=== PATIENT | male | born 1970 | race Caucasian/White ===

== ENCOUNTER 2021-03-22 10:22 | Observation (INO) | payer MEDICARE, MEDICAID ==
[~2021-03-22] VITALS: Ht 167.6 cm; Wt 100.0 kg
[~2021-03-22 10:22] MED LIST: ABILIFY10 MG PO; ABILIFY15 MG PO; ABILIFY30 MG PO; AMBIEN10 MG PO; AMOXICILLIN500 MG PO; BUSPAR5 MG PO; CARAFATE1 GM PO; CATAPRES0.1 MG PO; CELEXA40 MG PO; CIPRO XR500 MG PO; CIPRO500 MG OR; CLONAZEP ODT1 MG PO; DOXYCYCL HYC100 MG PO; FLAGYL500 MG PO; FLUPHENAZINE5 MG PO; HYDROCHLOROT12.5 MG PO; KLONOPIN0.5 MG PO; LEXAPRO10 MG PO; LEXAPRO5 MG PO; LISINOP/HCTZ1 TA2 PO; LISINOP/HCTZ1 TAB PO; LISINOPRIL10 MG PO; LISINOPRIL5 MG PO; LORTAB 5/3255 MG PO; METOPROLOL25 M1 OR; NO MEDS; PRINIVIL5 MG PO; PROTONIX40 MG PO; SEROQUEL100 MG PO; TETRACYCLINE250 MG PO; TRAZODONE100 MG PO; TRAZODONE50 MG PO; ULTRAM50 M1 PO
[2021-03-22] MEDS ORDERED: TRAZODONE50 MG PO (10:44)
[2021-03-22] MEDS ORDERED: BUSPAR5 MG PO (10:44)
[2021-03-22] MEDS ORDERED: METFORMIN500 M2 PO (10:46)
[2021-03-22] MEDS ORDERED: GEODON40 M1 PO (10:46)
[2021-03-22 10:59] LABS: HEMATOCRIT 43.2 % (39.0-50.0); HEMOGLOBIN 13.9 g/dl (14.0-18.0); IMMATURE GRANULOCYTES 0.2 % (0.0-5.0); MEAN CORPUSCULAR HGB 25.7 pG CALC (26.0-32.0); MEAN CORPUSCULAR HGB CONC 32.2 g/dL CAL (32.0-36.0); NEUT# 8.94 thou/uL (1.82-7.42); RED BLOOD COUNT 5.4 mill/uL (4.70-6.10); RED CELL DISTRI WIDTH 13.7 % (11.5-15.5)
[2021-03-22 11:11] LABS: ALBUMIN 4.2 g/dL (3.2-5.0); ALKALINE PHOSPHATASE 81 u/l (38-126); ANION GAP 14 (6-22 (CALC)); BUN 22 mg/dL (9-20); BUN/CREATININE RATIO 29 (12-20 (CALC)); CARBON DIOXIDE 29 mmol/l (22-30); CHLORIDE 102 mmol/l (95-108); CREATININE 0.8 mg/dL (0.7-1.3); GFR > 60 ML/MIN (>=60 (CALC)); GFR FOR AFR.AMER. > 60 ML/MIN (>=60 (CALC)); LIPASE 68 u/l (23-300); POTASSIUM 3.7 mmol/l (3.5-5.1); SGOT/AST 26 u/l (17-59); SODIUM 142 mmol/l (137-146); TOTAL PROTEIN 8.2 g/dL (6.3-8.2)
[2021-03-22 11:15] LABS: BILIRUBIN, TOTAL 0.9 mg/dL (0.0-1.4)
[2021-03-22 13:05] LABS: URINE BILIRUBIN - DIPSTICK NEGATIVE (NEGATIVE); URINE BLOOD DIPSTICK NEGATIVE (NEGATIVE); URINE COLOR YELLOW; URINE GLUCOSE - DIPSTICK NEGATIVE (NEGATIVE); URINE KETONE NEGATIVE (NEGATIVE); URINE LEUK ESTERASE NEGATIVE (NEGATIVE); URINE PH 8.5 (4.5-8.0); URINE PROTEIN - DIPSTICK TRACE mg/dL (NEG-TRACE); URINE UROBILINOGEN - DIPSTICK 0.2 E.U./dL (0.2)
[2021-03-22 13:08] LABS: URINE NITRITE - DIPSTICK NEGATIVE (Negative)
[2021-03-22 16:20] VITALS: BP 150/88
[2021-03-22 19:26] VITALS: BP 166/89
[2021-03-23 00:07] VITALS: BP 138/80
[2021-03-23 05:06] VITALS: BP 169/76
[2021-03-23 05:23] LABS: HEMATOCRIT 39.2 % (39.0-50.0); HEMOGLOBIN 12.7 g/dl (14.0-18.0); IMMATURE GRANULOCYTES 0.6 % (0.0-5.0); MEAN CELL VOLUME 80.8 fL CALC (80.0-100.0); MEAN CORPUSCULAR HGB 26.2 pG CALC (26.0-32.0); MEAN CORPUSCULAR HGB CONC 32.4 g/dL CAL (32.0-36.0); NEUT# 8.69 thou/uL (1.82-7.42); RED BLOOD COUNT 4.85 mill/uL (4.70-6.10); RED CELL DISTRI WIDTH 13.6 % (11.5-15.5)
[2021-03-23 05:47] LABS: ALBUMIN 3.6 g/dL (3.2-5.0); ALKALINE PHOSPHATASE 69 u/l (38-126); ANION GAP 12 (6-22 (CALC)); BUN 29 mg/dL (9-20); BUN/CREATININE RATIO 46 (12-20 (CALC)); C-REACTIVE PROTEIN 1.9 mg/dL (0-0.9); CARBON DIOXIDE 26 mmol/l (22-30); CHLORIDE 106 mmol/l (95-108); CREATININE 0.6 mg/dL (0.7-1.3); GFR > 60 ML/MIN (>=60 (CALC)); GFR FOR AFR.AMER. > 60 ML/MIN (>=60 (CALC)); POTASSIUM 4.3 mmol/l (3.5-5.1); SGOT/AST 19 u/l (17-59); SODIUM 140 mmol/l (137-146); TOTAL PROTEIN 6.9 g/dL (6.3-8.2)
[2021-03-23 05:56] LABS: BILIRUBIN, TOTAL 0.4 mg/dL (0.0-1.4)
[2021-03-23 07:10] VITALS: BP 154/88
[2021-03-23 08:59] VITALS: BP 154/88
[2021-03-23] MEDS ORDERED: DOXYCYCL HYC100 MG PO (11:01)
== END 2021-03-23 12:25 | disposition home or self-care (01) ==
LOC: ED 10:22 → ED-I 14:37 → ED 15:06 → MS2 15:07
PROVIDERS: Emergency Medicine; Nurse Practitioner; ADMIT Hospitalist; ATTEND Hospitalist
DX: U07.1 COVID-19 (principal); R09.02 Hypoxemia; E11.9 Type 2 diabetes mellitus without complications; I10 Essential (primary) hypertension; F41.9 Anxiety disorder, unspecified; F31.9 Bipolar disorder, unspecified; F20.9 Schizophrenia, unspecified; F17.290 Nicotine dependence, other tobacco product, uncomplicated; Z79.84 Long term (current) use of oral hypoglycemic drugs
CPT/HCPCS: J1650; Q9967

== ENCOUNTER 2021-07-25 22:03 | Emergency (ER) | payer MEDICARE, OTHER ==
[~2021-07-25] VITALS: Ht 167.6 cm; Wt 100.0 kg
[~2021-07-25 22:03] MED LIST changes: +GEODON40 M1 PO; +METFORMIN500 M2 PO
[2021-07-25] MEDS ORDERED: PROZAC10 MG PO (22:57)
[2021-07-25 23:23] LABS: HEMATOCRIT 40.3 % (39.0-50.0); IMMATURE GRANULOCYTES 0.1 % (0.0-5.0); MEAN CELL VOLUME 82.2 fL CALC (80.0-100.0); MEAN CORPUSCULAR HGB 26.5 pG CALC (26.0-32.0); MEAN CORPUSCULAR HGB CONC 32.3 g/dL CAL (32.0-36.0); NEUT# 5.55 thou/uL (1.82-7.42); RED BLOOD COUNT 4.9 mill/uL (4.70-6.10); RED CELL DISTRI WIDTH 12.9 % (11.5-15.5)
[2021-07-25 23:43] LABS: ALBUMIN 3.8 g/dL (3.2-5.0); ALKALINE PHOSPHATASE 67 u/l (38-126); ANION GAP 13 (6-22 (CALC)); BILIRUBIN, TOTAL 0.3 mg/dL (0.0-1.4); BUN 18 mg/dL (9-20); BUN/CREATININE RATIO 17 (12-20 (CALC)); CARBON DIOXIDE 28 mmol/l (22-30); CHLORIDE 103 mmol/l (95-108); ETHYL ALCOHOL 0 mg/dl (0-30); GFR > 60 ML/MIN (>=60 (CALC)); GFR FOR AFR.AMER. > 60 ML/MIN (>=60 (CALC)); MAGNESIUM 2.2 mg/dL (1.6-2.3); POTASSIUM 4.1 mmol/l (3.5-5.1); SGOT/AST 21 u/l (17-59); SODIUM 140 mmol/l (137-146); TOTAL PROTEIN 6.8 g/dL (6.3-8.2)
[2021-07-25 23:54] LABS: MYOGLOBIN 28 ng/mL (0 - 121)
[2021-07-26 02:08] LABS: URINE BILIRUBIN - DIPSTICK NEGATIVE (NEGATIVE); URINE BLOOD DIPSTICK NEGATIVE (NEGATIVE); URINE COLOR YELLOW; URINE GLUCOSE - DIPSTICK NEGATIVE (NEGATIVE); URINE KETONE NEGATIVE (NEGATIVE); URINE LEUK ESTERASE NEGATIVE (NEGATIVE); URINE PROTEIN - DIPSTICK NEGATIVE (NEG-TRACE); URINE SPECIFIC GRAVITY 1.015; URINE UROBILINOGEN - DIPSTICK 0.2 E.U./dL (0.2)
[2021-07-26 02:14] LABS: URINE NITRITE - DIPSTICK NEGATIVE (Negative)
[2021-07-26 03:58] VITALS: BP 117/69
== END 2021-07-26 03:52 ==
LOC: ED 22:03
PROVIDERS: Emergency Medicine
DX: R45.851 Suicidal ideations (principal); R07.89 Other chest pain; I10 Essential (primary) hypertension; E11.9 Type 2 diabetes mellitus without complications; F41.9 Anxiety disorder, unspecified; F20.9 Schizophrenia, unspecified; F17.200 Nicotine dependence, unspecified, uncomplicated; Z79.84 Long term (current) use of oral hypoglycemic drugs; Z86.16 Personal history of COVID-19; Z20.822 Contact with and (suspected) exposure to COVID-19

== ENCOUNTER 2022-06-04 14:39 | Observation (INO) | payer MEDICARE, OTHER ==
[~2022-06-04] VITALS: Ht 167.6 cm; Wt 88.8 kg
[2022-06-04] VITALS (13 sets, daily range): BP systolic 117–172; BP diastolic 76–113
[~2022-06-04 14:39] MED LIST changes: +PROZAC10 MG PO
[2022-06-04 15:09] LABS: BASO% 0.6 % (0-3); EOS% 1.5 % (0-8); HEMATOCRIT 37.7 % (39.0-50.0); HEMOGLOBIN 12.9 g/dl (14.0-18.0); IMMATURE GRANULOCYTES 0.1 % (0.0-5.0); LYMPH% 24.5 % (15-41); MEAN CELL VOLUME 81.6 fL CALC (80.0-100.0); MEAN CORPUSCULAR HGB 27.9 pG CALC (26.0-32.0); MEAN CORPUSCULAR HGB CONC 34.2 g/dL CAL (32.0-36.0); MONO% 6.7 % (2-13); NEUT# 5.61 thou/uL (1.82-7.42); NEUT% 66.6 % (42-76); RED BLOOD COUNT 4.62 mill/uL (4.70-6.10); RED CELL DISTRI WIDTH 12.9 % (11.5-15.5)
[2022-06-04 15:40] LABS: ALBUMIN 4.1 g/dL (3.2-5.0); ALKALINE PHOSPHATASE 69 u/l (38-126); ANION GAP 7 (6-22 (CALC)); BUN 10 mg/dL (9-20); BUN/CREATININE RATIO 12 (12-20 (CALC)); CARBON DIOXIDE 29 mmol/l (22-30); CHLORIDE 108 mmol/l (95-108); CREATININE 0.8 mg/dL (0.7-1.3); GFR FOR AFR.AMER. > 60 ML/MIN (>=60 (CALC)); GFR OTHER RACES > 60 ML/MIN (>=60 (CALC)); LIPASE 122 u/l (23-300); POTASSIUM 3.5 mmol/l (3.5-5.1); SGOT/AST 30 u/l (17-59); SODIUM 140 mmol/l (137-146); TOTAL PROTEIN 7.1 g/dL (6.3-8.2)
[2022-06-04 15:43] LABS: BILIRUBIN, TOTAL 0.1 mg/dL (0.0-1.4)
[2022-06-05 03:52] VITALS: BP 166/90
[2022-06-05 04:00] VITALS: BP 128/88
[2022-06-05 04:11] VITALS: BP 128/88
[2022-06-05 06:17] LABS: BASO% 0.6 % (0-3); EOS% 3.9 % (0-8); HEMATOCRIT 39.5 % (39.0-50.0); HEMOGLOBIN 13.3 g/dl (14.0-18.0); MEAN CELL VOLUME 82.3 fL CALC (80.0-100.0); MEAN CORPUSCULAR HGB 27.7 pG CALC (26.0-32.0); MEAN CORPUSCULAR HGB CONC 33.7 g/dL CAL (32.0-36.0); MONO% 7.7 % (2-13); NEUT# 4.25 thou/uL (1.82-7.42); NEUT% 58.8 % (42-76); RED BLOOD COUNT 4.8 mill/uL (4.70-6.10); RED CELL DISTRI WIDTH 13.1 % (11.5-15.5)
[2022-06-05 06:26] LABS: ALKALINE PHOSPHATASE 57 u/l (38-126); BUN 12 mg/dL (9-20); BUN/CREATININE RATIO 14 (12-20 (CALC)); CARBON DIOXIDE 30 mmol/l (22-30); CHLORIDE 107 mmol/l (95-108); CREATININE 0.8 mg/dL (0.7-1.3); GFR FOR AFR.AMER. > 60 ML/MIN (>=60 (CALC)); GFR OTHER RACES > 60 ML/MIN (>=60 (CALC)); MAGNESIUM 2.2 mg/dL (1.6-2.3); SGOT/AST 27 u/l (17-59); SODIUM 141 mmol/l (137-146); TOTAL PROTEIN 6.9 g/dL (6.3-8.2)
[2022-06-05 06:42] LABS: ANION GAP 9 (6-22 (CALC)); BILIRUBIN, TOTAL 0.5 mg/dL (0.0-1.4); POTASSIUM 4.5 mmol/l (3.5-5.1)
[2022-06-05 06:53] VITALS: BP 162/99
[2022-06-05 10:43] VITALS: BP 167/97
[2022-06-05 10:59] LABS: URINE BILIRUBIN - DIPSTICK NEGATIVE (NEGATIVE); URINE BLOOD DIPSTICK NEGATIVE (NEGATIVE); URINE COLOR YELLOW; URINE GLUCOSE - DIPSTICK NEGATIVE (NEGATIVE); URINE KETONE NEGATIVE (NEGATIVE); URINE LEUK ESTERASE NEGATIVE (NEGATIVE); URINE PH 8.5 (4.5-8.0); URINE PROTEIN - DIPSTICK NEGATIVE (NEG-TRACE); URINE SPECIFIC GRAVITY 1.025; URINE UROBILINOGEN - DIPSTICK 0.2 E.U./dL (0.2)
[2022-06-05 11:03] LABS: URINE NITRITE - DIPSTICK NEGATIVE (Negative)
[2022-06-05] MEDS ORDERED: PROTONIX40 M2 PO (11:31)
[2022-06-05] MEDS ORDERED: VENTOLIN HFA108 MCG BU (11:33)
== END 2022-06-05 12:50 | disposition home or self-care (01) ==
LOC: ED 14:39 → ED-I 16:17 → ED 16:41 → MS2 16:42
PROVIDERS: Nurse Practitioner; ADMIT Internal Medicine; ATTEND Internal Medicine
DX: R07.9 Chest pain, unspecified (principal); J06.9 Acute upper respiratory infection, unspecified; I10 Essential (primary) hypertension; E11.9 Type 2 diabetes mellitus without complications; F31.9 Bipolar disorder, unspecified; F41.9 Anxiety disorder, unspecified; F20.9 Schizophrenia, unspecified; F17.290 Nicotine dependence, other tobacco product, uncomplicated; Z86.16 Personal history of COVID-19; Z20.822 Contact with and (suspected) exposure to COVID-19; Z79.84 Long term (current) use of oral hypoglycemic drugs
CPT/HCPCS: S0164

== ENCOUNTER 2022-11-10 13:13 | Emergency (ER) | payer MEDICARE, OTHER ==
[~2022-11-10] VITALS: Ht 167.6 cm; Wt 87.0 kg
[~2022-11-10 13:13] MED LIST changes: +PROTONIX40 M2 PO; +VENTOLIN HFA108 MCG BU
[2022-11-10 13:17] VITALS: BP 141/101
[2022-11-10 13:53] LABS: URINE BILIRUBIN - DIPSTICK NEGATIVE (NEGATIVE); URINE BLOOD DIPSTICK NEGATIVE (NEGATIVE); URINE COLOR YELLOW; URINE GLUCOSE - DIPSTICK NEGATIVE (NEGATIVE); URINE KETONE TRACE mg/dL (NEGATIVE); URINE LEUK ESTERASE NEGATIVE (NEGATIVE); URINE PROTEIN - DIPSTICK TRACE mg/dL (NEG-TRACE)
[2022-11-10 14:00] LABS: BASO% 0.5 % (0-3); EOS% 1.2 % (0-8); HEMATOCRIT 43.3 % (39.0-50.0); HEMOGLOBIN 14.6 g/dl (14.0-18.0); IMMATURE GRANULOCYTES 0.1 % (0.0-5.0); LYMPH% 21.2 % (15-41); MEAN CELL VOLUME 80.6 fL CALC (80.0-100.0); MEAN CORPUSCULAR HGB 27.2 pG CALC (26.0-32.0); MEAN CORPUSCULAR HGB CONC 33.7 g/dL CAL (32.0-36.0); MONO% 6.4 % (2-13); NEUT# 5.4 thou/uL (1.82-7.42); NEUT% 70.6 % (42-76); RED BLOOD COUNT 5.37 mill/uL (4.70-6.10); RED CELL DISTRI WIDTH 12.8 % (11.5-15.5)
[2022-11-10 14:01] VITALS: BP 175/104
[2022-11-10 14:01] LABS: URINE NITRITE - DIPSTICK NEGATIVE (Negative)
[2022-11-10 14:15] LABS: ALBUMIN 4.3 g/dL (3.2-5.0); ALKALINE PHOSPHATASE 79 u/l (38-126); ANION GAP 13 (6-22 (CALC)); BILIRUBIN, TOTAL 0.5 mg/dL (0.2-1.3); BUN 17 mg/dL (9-20); BUN/CREATININE RATIO 16 (12-20 (CALC)); CARBON DIOXIDE 29 mmol/l (22-30); CHLORIDE 105 mmol/l (95-108); GFR FOR AFR.AMER. > 60 ML/MIN (>=60 (CALC)); GFR OTHER RACES > 60 ML/MIN (>=60 (CALC)); LIPASE 154 u/l (23-300); POTASSIUM 3.6 mmol/l (3.5-5.1); SGOT/AST 22 u/l (17-59); SODIUM 143 mmol/l (137-146); TOTAL PROTEIN 7.3 g/dL (6.3-8.2)
[2022-11-10 14:49] VITALS: BP 164/99
== END 2022-11-10 14:49 | disposition left against medical advice (07) ==
LOC: ED 13:13
PROVIDERS: Nurse Practitioner
DX: R10.13 Epigastric pain (principal); I10 Essential (primary) hypertension; E11.9 Type 2 diabetes mellitus without complications; F41.9 Anxiety disorder, unspecified; Z86.16 Personal history of COVID-19; Z53.29 Procedure and treatment not carried out because of patient's decision for other reasons; Z79.84 Long term (current) use of oral hypoglycemic drugs

== ENCOUNTER 2022-11-12 14:49 | Emergency (ER) | payer MEDICARE, OTHER ==
[~2022-11-12] VITALS: Ht 167.6 cm; Wt 86.2 kg
[2022-11-12 14:54] VITALS: BP 151/92
[2022-11-12 15:47] VITALS: BP 151/92
== END 2022-11-12 15:48 | disposition left against medical advice (07) ==
LOC: ED 14:49
DX: R10.13 Epigastric pain (principal); I10 Essential (primary) hypertension; E11.9 Type 2 diabetes mellitus without complications; F41.9 Anxiety disorder, unspecified; Z86.16 Personal history of COVID-19; Z79.84 Long term (current) use of oral hypoglycemic drugs; Z53.29 Procedure and treatment not carried out because of patient's decision for other reasons

== ENCOUNTER 2022-12-09 13:17 | Emergency (ER) | payer MEDICARE, OTHER ==
[~2022-12-09] VITALS: Ht 167.6 cm; Wt 86.1 kg
[2022-12-09 13:25] VITALS: BP 180/104
[2022-12-09 13:31] VITALS: BP 175/110
[2022-12-09 13:45] VITALS: BP 155/100
[2022-12-09 13:50] LABS: BASO% 0.5 % (0-3); BILIRUBIN, TOTAL 0.3 mg/dL (0.2-1.3); BUN 16 mg/dL (9-20); BUN/CREATININE RATIO 19 (12-20 (CALC)); CHLORIDE 107 mmol/l (95-108); CREATININE 0.9 mg/dL (0.7-1.3); EOS% 1.7 % (0-8); GFR FOR AFR.AMER. > 60 ML/MIN (>=60 (CALC)); GFR OTHER RACES > 60 ML/MIN (>=60 (CALC)); HEMATOCRIT 43.9 % (39.0-50.0); IMMATURE GRANULOCYTES 0.5 % (0.0-5.0); LYMPH% 24.7 % (15-41); MEAN CORPUSCULAR HGB 26.5 pG CALC (26.0-32.0); MEAN CORPUSCULAR HGB CONC 31.9 g/dL CAL (32.0-36.0); MONO% 6.1 % (2-13); NEUT# 5.47 thou/uL (1.82-7.42); NEUT% 66.5 % (42-76); POTASSIUM 3.5 mmol/l (3.5-5.1); RED BLOOD COUNT 5.29 mill/uL (4.70-6.10); SGOT/AST 36 u/l (17-59); SODIUM 141 mmol/l (137-146); TOTAL PROTEIN 7.4 g/dL (6.3-8.2)
[2022-12-09 13:53] LABS: ALKALINE PHOSPHATASE 132 u/l (38-126); ANION GAP 16 (6-22 (CALC)); CARBON DIOXIDE 22 mmol/l (22-30)
[2022-12-09 14:44] VITALS: BP 155/98
== END 2022-12-09 14:45 | disposition home or self-care (01) ==
LOC: ED 13:17
PROVIDERS: Nurse Practitioner
DX: E86.0 Dehydration (principal); I10 Essential (primary) hypertension; E11.9 Type 2 diabetes mellitus without complications; F41.9 Anxiety disorder, unspecified; Z86.16 Personal history of COVID-19; Z79.84 Long term (current) use of oral hypoglycemic drugs

== ENCOUNTER 2023-01-19 19:00 | Observation (INO) | payer MEDICARE, OTHER ==
[~2023-01-19] VITALS: Ht 167.6 cm; Wt 88.8 kg
--- NOTE | 2023-01-19 19:00 | NUR ---
PT TO RM 9 VIA EMS
[2023-01-19 19:03] VITALS: BP 140/81
--- NOTE | 2023-01-19 19:30 | NUR ---
PT RESTING IN BED. RESP EVEN AND UNLABORED. NO DISTRESS NOTED. PT DENIES PAIN AT THIS TIME. PLACED ON ZIGZAG ELASTIC ATTACHER. A&O. VSS. INFORMED PT OF PLAN OF CARE AND WAIT TIME AND HE VERBALIZED UNDERSTANDING. CALL LIGHT IN REACH.
[2023-01-19 20:00] VITALS: BP 126/84
[2023-01-19 20:10] LABS: BASO% 0.6 % (0-3); EOS% 3.9 % (0-8); IMMATURE GRANULOCYTES 0.2 % (0.0-5.0); LYMPH% 28.9 % (15-41); MEAN CELL VOLUME 84.4 fL CALC (80.0-100.0); MEAN CORPUSCULAR HGB 27.6 pG CALC (26.0-32.0); MEAN CORPUSCULAR HGB CONC 32.7 g/dL CAL (32.0-36.0); MONO% 6.6 % (2-13); NEUT% 59.8 % (42-76); RED BLOOD COUNT 4.24 mill/uL (4.70-6.10); RED CELL DISTRI WIDTH 12.5 % (11.5-15.5)
[2023-01-19 20:11] LABS: HEMATOCRIT 35.8 % (39.0-50.0); HEMOGLOBIN 11.7 g/dl (14.0-18.0)
[2023-01-19 20:17] LABS: ALBUMIN 3.6 g/dL (3.2-5.0); BUN 17 mg/dL (9-20); BUN/CREATININE RATIO 17 (12-20 (CALC)); CHLORIDE 103 mmol/l (95-108); GFR FOR AFR.AMER. > 60 ML/MIN (>=60 (CALC)); GFR OTHER RACES > 60 ML/MIN (>=60 (CALC)); POTASSIUM 4.1 mmol/l (3.5-5.1); SGOT/AST 40 u/l (17-59); SODIUM 139 mmol/l (137-146); TOTAL PROTEIN 6.7 g/dL (6.3-8.2)
[2023-01-19 20:23] LABS: ALKALINE PHOSPHATASE 43 u/l (38-126); ANION GAP 8 (6-22 (CALC)); BILIRUBIN, TOTAL 0.6 mg/dL (0.2-1.3); CARBON DIOXIDE 32 mmol/l (22-30)
--- NOTE | 2023-01-19 20:30 | NUR ---
PT CONTINUES RESTING IN BED W/ NO CHANGE IN ASSESSMENT. NO PAIN. VSS. RESP EVEN AND UNLABORED. CALL LIGHT IN REACH.
[2023-01-19 21:00] VITALS: BP 123/88
--- NOTE | 2023-01-19 21:15 | NUR ---
ATTEMPTED TO CALL REPORT TO MS NA
--- NOTE | 2023-01-19 21:35 | NUR ---
REPORT CALLED TO AMINTA AGUILERA
--- NOTE | 2023-01-19 21:45 | NUR ---
PT TRANSPORTED TO [facility] VIA WHEELCHAIR IN STABLE CONDITION
--- NOTE | 2023-01-19 21:53 | NUR ---
RECIEVED REPORT FROM ER NURSE.
--- NOTE | 2023-01-19 22:00 | NUR ---
PT ARRIVED TO [facility] ROOM 273. PT A/OX3 BUT MENTALLY DELAYED. RESPIRATIONS EVEN AND UNLABORED ON ROOM AIR. LUNG SOUNDS CLEAR. HEART RHYTHM NORMAL WITH TELE IN PLACE. BOWEL SOUNDS ACTIVE. #18G LW INFUSING WITH IVF PER ORDER. SKIN INTACT. PT STATES CHEST PAIN IS NOW 6/10 BUT IS IMPROVING. PT ORIENTED TO ROOM AND CALL LIGHT SYSTEM. ALL SAFETY PRECAUTIONS ARE IN PLACE WITH CALL LIGHT IN REACH.
[2023-01-19 22:11] VITALS: BP 162/93
[2023-01-19 22:14] VITALS: BP 147/91
--- NOTE | 2023-01-19 23:20 | NUR ---
DIRECTOR SAFETY AT BEDSIDE. PT STANDING BY BED WITH PEE ON FLOOR. TELE REMOVED. PT STATES HE WAS TRYING TO USE THE URINAL. PT APPEARS ANXIOUS. DIRECTOR SAFETY ABLE TO CALM PT DOWN AND ASSIST IN CLEANING UP. PT EXPRESSES HIS HOME TROUBLES WITH HIS BROTHERS AND HIS MORMON. PT APPEARS TO BE LESS ANXIOUS HE JOKES WITH STAFF. PT MOVED TO ROOM 269 TO BE CLOSER TO NURSE STATION. BED ALARM ACTIVED. DIRECTOR SAFETY SPOKE WITH PT ABOUT CALLING BEFORE GETTING OUT OF BED. PT VERBALIZED UNDERSTANDING. ALL SAFETY PRECAUTIONS ARE IN PLACE WITH CALL LIGHT IN REACH AND BED ALARM ACTIVE
[2023-01-19 23:38] LABS: URINE BILIRUBIN - DIPSTICK Negative (NEGATIVE); URINE BLOOD DIPSTICK Negative (NEGATIVE); URINE GLUCOSE - DIPSTICK Negative (NEGATIVE); URINE KETONE Negative (NEGATIVE); URINE LEUK ESTERASE Negative (NEGATIVE); URINE NITRITE - DIPSTICK Negative (Negative); URINE PROTEIN - DIPSTICK Negative (NEG-TRACE); URINE SPECIFIC GRAVITY 1.015; URINE UROBILINOGEN - DIPSTICK 0.2 E.U./dL (0.2)
[2023-01-19 23:39] LABS: URINE COLOR Yellow
[2023-01-20 00:05] VITALS: BP 182/111
--- NOTE | 2023-01-20 00:40 | NUR ---
PT SLEEPING IN SEMI FOWLERS POSITION. RESPIRATIONS EVEN AND UNLABORED ON ROOM AIR. TELE MONITORING IN PLACE. IVF INFUSING PER ORDER, SITE PATENT. ELEVATED BP NOTED, TO BE REASSESS. NO S/S OF ANY DISTRESS AT THIS TIME. ALL SAFETY PRECAUTIONS ARE IN PLACE WITH CALL LIGHT IN REACH. BED ALARM ACTIVE
[2023-01-20 00:58] VITALS: BP 182/111
[2023-01-20 01:00] VITALS: BP 137/98
--- NOTE | 2023-01-20 04:07 | NUR ---
PT RESTING IN SEMI FOWLERS POSITION. RESPIRATIONS EVEN AND UNLABORED ON ROOM AIR. TELE MONITORING IN PLACE. IVF INFUSING PER ORDER, SITE PATENT. PT DENIES OF ANY NEEDS. ALL SAFETY PRECAUTIONS ARE IN PLACE WITH CALL LIGHT IN REACH. BED ALARM ACTIVE
[2023-01-20 04:19] VITALS: BP 147/92
[2023-01-20 06:06] LABS: HEMATOCRIT 38.4 % (39.0-50.0); HEMOGLOBIN 12.6 g/dl (14.0-18.0); MEAN CELL VOLUME 84.8 fL CALC (80.0-100.0); MEAN CORPUSCULAR HGB 27.8 pG CALC (26.0-32.0); MEAN CORPUSCULAR HGB CONC 32.8 g/dL CAL (32.0-36.0); RED BLOOD COUNT 4.53 mill/uL (4.70-6.10); RED CELL DISTRI WIDTH 12.6 % (11.5-15.5)
[2023-01-20 06:13] LABS: ALBUMIN 3.6 g/dL (3.2-5.0); ALKALINE PHOSPHATASE 63 u/l (38-126); ANION GAP 10 (6-22 (CALC)); BILIRUBIN, TOTAL 0.4 mg/dL (0.2-1.3); BUN 15 mg/dL (9-20); BUN/CREATININE RATIO 14 (12-20 (CALC)); CARBON DIOXIDE 31 mmol/l (22-30); CHLORIDE 104 mmol/l (95-108); CHOLESTEROL HDL RATIO 3.6 (<4.4 (CALC)); GFR FOR AFR.AMER. > 60 ML/MIN (>=60 (CALC)); GFR OTHER RACES > 60 ML/MIN (>=60 (CALC)); MAGNESIUM 1.9 mg/dL (1.6-2.3); POTASSIUM 4.5 mmol/l (3.5-5.1); SGOT/AST 26 u/l (17-59); SODIUM 140 mmol/l (137-146); TOTAL PROTEIN 6.4 g/dL (6.3-8.2)
[2023-01-20 06:35] VITALS: BP 153/106
--- NOTE | 2023-01-20 08:00 | NUR ---
GOT REPORT FROM MEDICAL DRIVER NURSE. PATIENT ASSESSED. AOX3. PATIENT IS WALKING AROUND IN ROOM. PATIENT STATES THAT HE IS READY TO GO. ADVISED HIM TO WAIT FOR DOCTOR SO WE CAN GET THE PATIENT WORK. PATIENT VERBALIZED UNDERSTANDING.
--- NOTE | 2023-01-20 10:32 | NUR ---
Discharge instructions given. Patient verbalizes understanding of same. Discharged in stable condition via Ambulatory to home via cab. All belongings sent with pt.
== END 2023-01-20 10:32 | disposition home or self-care (01) ==
LOC: ED 19:00 → ED-I 20:18 → ED 20:37 → MS2 20:38
PROVIDERS: Nurse Practitioner; ADMIT Student in an Organized Health Care Education/Training Program; ATTEND Student in an Organized Health Care Education/Training Program
DX: R07.9 Chest pain, unspecified (principal); I10 Essential (primary) hypertension; E11.9 Type 2 diabetes mellitus without complications; F70 Mild intellectual disabilities; F31.9 Bipolar disorder, unspecified; F41.9 Anxiety disorder, unspecified; F20.9 Schizophrenia, unspecified; F17.290 Nicotine dependence, other tobacco product, uncomplicated; Z86.16 Personal history of COVID-19; Z79.84 Long term (current) use of oral hypoglycemic drugs
CPT/HCPCS: J1650

== ENCOUNTER 2023-02-02 20:08 | Emergency (ER) | payer MEDICARE, OTHER ==
[~2023-02-02] VITALS: Ht 167.6 cm; Wt 100.0 kg
[2023-02-02 20:41] LABS: BASO% 0.5 % (0-3); EOS% 3.3 % (0-8); HEMATOCRIT 37.7 % (39.0-50.0); HEMOGLOBIN 12.7 g/dl (14.0-18.0); IMMATURE GRANULOCYTES 0.1 % (0.0-5.0); LYMPH% 26.6 % (15-41); MEAN CELL VOLUME 82.9 fL CALC (80.0-100.0); MEAN CORPUSCULAR HGB 27.9 pG CALC (26.0-32.0); MEAN CORPUSCULAR HGB CONC 33.7 g/dL CAL (32.0-36.0); MONO% 8.1 % (2-13); NEUT# 6.33 thou/uL (1.82-7.42); NEUT% 61.4 % (42-76); RED BLOOD COUNT 4.55 mill/uL (4.70-6.10); RED CELL DISTRI WIDTH 12.5 % (11.5-15.5)
[2023-02-02 20:52] LABS: ALBUMIN 3.6 g/dL (3.2-5.0); ALKALINE PHOSPHATASE 64 u/l (38-126); ANION GAP 10 (6-22 (CALC)); BUN 19 mg/dL (9-20); BUN/CREATININE RATIO 20 (12-20 (CALC)); CARBON DIOXIDE 31 mmol/l (22-30); CHLORIDE 106 mmol/l (95-108); CPK 168 u/l (55-170); GFR FOR AFR.AMER. > 60 ML/MIN (>=60 (CALC)); GFR OTHER RACES > 60 ML/MIN (>=60 (CALC)); LIPASE 186 u/l (23-300); MAGNESIUM 1.8 mg/dL (1.6-2.3); POTASSIUM 3.5 mmol/l (3.5-5.1); SGOT/AST 27 u/l (17-59); SODIUM 143 mmol/l (137-146); TOTAL PROTEIN 6.7 g/dL (6.3-8.2)
[2023-02-02 20:56] LABS: INTERNATIONAL NORMALIZED RATIO 1.2 RATIO (0.7-1.3)
[2023-02-02 20:59] LABS: BILIRUBIN, TOTAL 0.3 mg/dL (0.2-1.3)
[2023-02-02 21:54] LABS: URINE BILIRUBIN - DIPSTICK Negative (NEGATIVE); URINE BLOOD DIPSTICK Negative (NEGATIVE); URINE GLUCOSE - DIPSTICK Negative (NEGATIVE); URINE KETONE Trace mg/dL (NEGATIVE); URINE LEUK ESTERASE Negative (NEGATIVE); URINE NITRITE - DIPSTICK Negative (Negative); URINE PH 5.5 (4.5-8.0); URINE PROTEIN - DIPSTICK Negative (NEG-TRACE); URINE SPECIFIC GRAVITY 1.025
[2023-02-02 21:56] LABS: URINE COLOR Yellow
[2023-02-02 23:03] VITALS: BP 140/87
[2023-02-02 23:15] VITALS: BP 147/89
[2023-02-02 23:30] VITALS: BP 140/92
[2023-02-02 23:45] VITALS: BP 127/89
[2023-02-03] VITALS (25 sets, daily range): BP systolic 117–170; BP diastolic 78–128
== END 2023-02-03 08:47 | disposition designated cancer center or children's hospital (05) ==
LOC: ED 20:08
PROVIDERS: Internal Medicine
DX: R45.851 Suicidal ideations (principal); K57.30 Diverticulosis of large intestine without perforation or abscess without bleeding; I10 Essential (primary) hypertension; E11.9 Type 2 diabetes mellitus without complications; F31.9 Bipolar disorder, unspecified; F41.9 Anxiety disorder, unspecified; F17.290 Nicotine dependence, other tobacco product, uncomplicated; Z86.16 Personal history of COVID-19; Z79.84 Long term (current) use of oral hypoglycemic drugs; Z91.51 Personal history of suicidal behavior; Z20.822 Contact with and (suspected) exposure to COVID-19
CPT/HCPCS: Q9967